=== PATIENT | male | born 1965 | race Caucasian/White ===

== ENCOUNTER → 2023-08-01 15:05 | Outpatient (REF) | payer OTHER, SELFPAY | LOC: HWRAD 15:05 | PROVIDERS: ATTENDING PHYSICIAN Family Medicine | DX: M54.17 Radiculopathy, lumbosacral region (principal); M25.551 Pain in right hip | CPT/HCPCS: 72110; 73502 ==

== ENCOUNTER → 2023-10-28 09:02 | Outpatient (REF) | payer OTHER, SELFPAY | LOC: RCS 09:02 | PROVIDERS: ATTENDING PHYSICIAN Physical Medicine & Rehabilitation; FAMILY PHYSICIAN Family Medicine | DX: Z01.818 Encounter for other preprocedural examination (principal) | CPT/HCPCS: 93005 ==

== ENCOUNTER 2023-11-09 13:00 | Emergency (ER) | payer OTHER, SELFPAY ==
[2023-11-09 13:24] VITALS: BP 173/106
--- NOTE | 2023-11-09 13:26 | ED.PDOC.TR ---
ED Provider Triage
-
Patient seen by provider in Triage?: Seen in Triage
58-year-old male presenting to the emergency department after being sent in by ortho for concerns of irregular cardiac rhythm. Patient found to be in atrial fibrillation sent to the ER. No symptoms at this time. Concerning this patient was
started with EKG here as well as labs. Denies any excessive alcohol use or caffeine use. No new medications. No chest pain.
[2023-11-09 13:55] LABS: % Basophils 0.9 % (0-2); % Eosinophils 1.4 % (0-6); % Immature Granulocytes 0.5 % (0-0.5); % Lymphocytes 31.6 % (20.5-51.1); % Monocytes 11.2 % (1.7-9.3); % Neutrophils 54.4 % (42.2-75.2); Absolute Basophils 0.1 10^3/uL (0-0.2); Absolute Eosinophils 0.1 10^3/uL (0-0.7); Absolute Monocytes 0.7 10^3/uL (0.1-0.6); Absolute Neutrophils 3.5 10^3/uL (1.4-6.5); Hematocrit 49.6 % (39.0-52.0); Hemoglobin 17.8 g/dL (13.0-18.0); Mean Corp Hgb Conc. 35.9 g/dL (33.0-37.0); Mean Corpuscular Hgb 30.6 pg (27.0-31.0); Mean Corpuscular Volume 85.2 fL (80.0-94.0); Mean Platelet Volume 9.4 fL (7.4-10.4); Nucleated Red Blood Cells % 0 % (-); Platelet Count 254 10^3/uL (130-400); Red Blood Cell Count 5.82 10^6/uL (4.70-6.10); Red Cell Dist. Width 12.9 % (11.5-14.5); White Blood Cell Count 6.4 10^3/uL (4.8-10.8)
[2023-11-09 14:23] LABS: ALT (SGPT) 41 U/L (0-50); AST (SGOT) 37 U/L (17-59); Albumin 4.6 g/dl (3.5-5.0); Alkaline Phosphatase 45 U/L (38-126); Blood Urea Nitrogen 27 mg/dl (9-20); Calcium 10.1 mg/dl (8.4-10.2); Carbon Dioxide 34 mmol/L (22-30); Chloride 97 mmol/L (98-107); Glucose 104 mg/dl (70-99); Magnesium 2.2 mg/dl (1.6-2.3); Potassium 3.5 mmol/L (3.5-5.1); Sodium 141 mmol/L (135-145); Total Bilirubin 2.2 mg/dl (0.2-1.3); Total Protein 7.5 g/dl (6.3-8.2); eGFR > 60.00
[2023-11-09 15:27] LABS: TSH 1.82 uIU/ml (0.47-4.68)
[2023-11-09 16:18] VITALS: BP 153/102
--- NOTE | 2023-11-09 16:34 | ED.GENMED ---
History of Present Illness
General
Chief Complaint: Heart Rate Problem
Source: patient
Time Seen by Provider: 11/09/23 16:15
Travel History
Have you had any contact with someone who has COVID-19?: No
Do you have any symptoms of coronavirus? Fever > 100 degrees, chills, cough, shortness of breath, sore throat, loss of taste or smell, muscle aches, or headache?: No
History of Present Illness
History of Present Illness:
58-year-old male with past medical history of hypertension presenting to the emergency department from outpatient surgical center where he was scheduled to undergo an epidural for sciatica and while he was getting triage they were checking his vital
signs and noted an irregular heartbeat. Patient had an EKG done and there was concern for atrial fibrillation so the procedure was aborted and patient was at the emergency department. Patient states he has no symptoms and outside of his back pain
feels great otherwise. Denies palpitations, chest pain, shortness of breath, fevers or infectious symptoms or any other concerns.
Past History
Past History
ED Past Medical History: GERD and HTN
ED Past Surgical History: Appendectomy, Cholecystectomy and Orthopedic
Social History
Tobacco: Non-smoker
Alcohol: Occasional
Drug: None
Personal:
Living: with family
Review of Systems
Review of Systems
All Other Systems: ROS reviewed and negative except as documented in HPI and ROS
Phy Exam
Physical Exam
Physical Exam:
GENERAL: Alert , in no apparent distress
EYE: conjunctiva clear
NECK: Supple
ENT: o/p clr, mmm.
CARDIAC: Regular rate and rhythm occasional ectopic beat noted on telemetry
LUNGS: Clear breath sounds bilaterally, no acute respiratory distress, no wheezes/rales/rhonchi
NEUROLOGICAL: Alert and oriented
SKIN: Warm and dry, skin intact.
MUSCULOSKELETAL: well perfused.
PSYCH: Normal and appropriate interaction.
Scores
[id number] Score for Afib Stroke Risk
Age in Years (65=0, 65-74=1, >/=75=2): <65
Sex (Female=+1): Male
Congestive Heart Failure History (Yes=+1): No
Hypertension History (Yes=+1): Yes
Stroke/TIA/Thromboembolism History (Yes=+2): No
Vascular Disease History (Yes=+1): No
Diabetes Mellitus (Yes=+1): No
Score: 1
Anticoagulation Recommendations: Consider anticoagulation (as validated in nonvalvular fib)
Heart Failure Risk
Heart Failure Risk Score: Not Applicable
Heart Score for Chest Pain Patients
STEMI patient?: Not applicable
Withdrawal Assessment of Alcohol
Withdrawal Assessment Completed?: Not applicable
Course
Orders/Labs/Results
Orders:
Orders
11/09/23 13:25
EKG [Electrocardiogram (*1)] Urgent
Reason for Study: Palpitations
Cardiac Monitoring- Treatment ONCE
EKG- Treatment ONCE
11/09/23 13:43
Complete Blood Count/With Diff Urgent
Comprehensive Metabolic Panel Urgent
Magnesium Urgent
TSH Urgent
11/09/23 16:20
ECG [Electrocardiogram (*1)] Urgent
Reason for Study: Bradycardia / Tachycardia
EKG- Treatment ONCE
Abnormal Lab Results
11/09/23
13:43
Absolute Monos (auto) 0.7 H 10^3/uL
(0.1-0.6)
Monocytes % 11.2 H %
(1.7-9.3)
Chloride 97 L mmol/L
(98-107)
Carbon Dioxide 34 H mmol/L
(22-30)
BUN 27 H mg/dl
(9-20)
Glucose 104 H mg/dl
(70-99)
Total Bilirubin 2.2 H mg/dl
(0.2-1.3)
11/09/23 13:43
11/09/23 13:43
Vital Signs
Initial and Last Documented VS:
Initial Vital Signs
Temp Pulse Resp BP Pulse Ox
98.3 F 73 18 173/106 98
11/09/23 13:24 11/09/23 13:24 11/09/23 13:24 11/09/23 13:24 11/09/23 13:24
Last Documented Vital Signs
Temp Pulse Resp BP Pulse Ox
98.3 F 79 17 156/96 94
11/09/23 13:24 11/09/23 17:00 11/09/23 17:00 11/09/23 17:00 11/09/23 17:00
Integrated Marketing Specialist consulted with Physician
Integrated Marketing Specialist consulted with physician?: Yes
Name of Physician Consulted: Haylie
MDM/Problems Addressed
Differential Diagnosis Includes:
Atrial fibrillation, atrial flutter, electrolyte disturbance
MDM/Problems Addressed:
58-year-old male presenting to the emergency department for evaluation following suspicion for new onset atrial fibrillation. EKG was done in triage and appears to show an atrial flutter rhythm. When patient was brought back into the emergency
department and hooked up to the veterans service officer he appeared to be in a sinus rhythm with frequent PACs. He is otherwise asymptomatic. Lab work was initiated in triage and is otherwise unremarkable. Patient is hemodynamically stable. Given his
stability combined with the fact that he is back in normal sinus rhythm we had an extensive conversation about treatment of A-fib/a flutter and potential for initiating an anticoagulant. Will contact cardiology to discuss and will expedite a close
outpatient follow-up with cardiology. I do anticipate patient will be able to be discharged home.
*Pulse Oximetry
Patient hypoxic: no
*EKG
Interpreted by ED Provider?: Yes
Heart Rate: 63
Rate: normal
Rhythm: a-fib
Howe: normal axis
Ischemia: T-wave inversion (anterolateral)
*Broadband Technician Interpretation
Rate: normal
Rhythm: sinus and PAC's
*Critical Care Note
Total Time (30-74mins, 75-104mins- exclusive of procedures): Not Applicable
Patient Management
Discussion with other providers: Defect Cutter
Escalation/DeEscalation of care consider admission/obs:
Case was discussed with on-call raimann machine operator, Dr. Colby, who is okay with plan to initiate patient on Eliquis 5 mg p.o. twice daily. Close outpatient follow-up with cardiology. Patient was given precautions with use of anticoagulants including
operating heavy machinery, if any injuries were to happen as well as ensuring he takes the dose around the same time each day. Patient has no history of previous GI bleeding or intracranial bleeding. He is stable for discharge home and aware of
her questions.
ED Attending Note
-
Portions of this chart may have been created with voice recognition software.� Occasional wrong word or��sound alike� substitutions may have occurred due to the inherent limitations of voice recognition software.
Discharge Plan
Departure
Patient Disposition: Home (Routine Discharge)
Date of Disposition: 11/09/23
Time of Disposition: 16:50
Patient with high blood pressure during this ER visit?: Yes
Discharge Problem:
Atrial flutter, paroxysmal
Instructions: Atrial Fibrillation (DC), Chest Pain DCA Follow Up
Prescriptions:
New
Eliquis 5 mg tablet
5 mg PO BID Qty: 60 0RF
No Action
lisinopril-hydrochlorothiazide 20-25 mg Tablet
1 tab PO QPM
acetaminophen-codeine [acetaminophen-codeine] 300-30 mg tablet
1 - 2 tab PO Q4HPRN PRN (Reason: Mod-severe pain) Qty: 30 0RF
cefuroxime axetil [cefuroxime axetil] 500 mg tablet
500 mg PO BID 7 Days Qty: 14 0RF
Referrals:
Yuval Browne MD [Family Provider] -
Interventions
Interventions:
*Risk Screen - Suicide Last Done: 11/09/23 13:24
*General Assessment Last Done: 11/09/23 13:24
*Neglect/Abuse Screening Last Done: 11/09/23 13:24
ED- Fall Risk Assessment Last Done: 11/09/23 16:17
*Nursing Disposition Last Done: 11/09/23 17:26
ED- Cardiac Assessment Last Done: 11/09/23 16:17
ED- Pulmonary Assessment Last Done: 11/09/23 16:17
Discharge Date and Time
Discharge Date/Time: 11/09/23 17:26
Print Language: YAKUT
[2023-11-09 17:00] VITALS: BP 156/96
== END 2023-11-09 17:26 | disposition home or self-care (01) ==
LOC: EMR 13:00
PROVIDERS: Physician Assistant; EMERGENCY PHYSICIAN Emergency Medicine; FAMILY PHYSICIAN Family Medicine
DX: I48.92 Unspecified atrial flutter (principal); I10 Essential (primary) hypertension; K21.9 Gastro-esophageal reflux disease without esophagitis; Z90.49 Acquired absence of other specified parts of digestive tract
CPT/HCPCS: 99283; 80053; 83735; 84443; 85025; 93005

== ENCOUNTER → 2023-11-17 14:57 | Outpatient (REF) | payer OTHER, SELFPAY | LOC: HWRCS 14:57 | PROVIDERS: ATTENDING PHYSICIAN Internal Medicine Cardiovascular Disease; FAMILY PHYSICIAN Family Medicine | DX: I48.0 Paroxysmal atrial fibrillation (principal) | CPT/HCPCS: 93306 ==

== ENCOUNTER → 2023-12-30 22:00 | Outpatient (REF) | payer OTHER, SELFPAY | LOC: DHSLP 22:00 | PROVIDERS: ATTENDING PHYSICIAN Internal Medicine Cardiovascular Disease; FAMILY PHYSICIAN Family Medicine | DX: G47.33 Obstructive sleep apnea (adult) (pediatric) (principal) | CPT/HCPCS: 95800 ==

== ENCOUNTER → 2024-08-31 08:27 | Outpatient (REF) | payer OTHER, SELFPAY | LOC: HWRAD 08:27 | PROVIDERS: ATTENDING PHYSICIAN Family Medicine | DX: I10 Essential (primary) hypertension (principal) | CPT/HCPCS: 93975 ==